=== PATIENT | female | born 1955 | race Asian ===

== ENCOUNTER 2018-07-16 11:29 | Emergency (ER) | payer OTHER ==
[~2018-07-16] VITALS: Ht 152.4 cm; Wt 54.9 kg
[2018-07-16 11:42] VITALS: Ht 152.4 cm; Wt 54.9 kg
[2018-07-16 12:07] LABS: microscopic required? NO
[2018-07-16 12:27] LABS: CALCIUM 9.3 mg/dL (8.5-10.1); CARBON DIOXIDE 27.3 mmol/L (21-32); CHLORIDE SERUM 96 mmol/L (98-107); CREATININE SERUM 1.1 mg/dL (0.6-1.0); GFR1 53 mL/min; GLUCOSE SERUM 385 mg/dL (74-106); POTASSIUM SERUM 3.8 mmol/L (3.5-5.1); SODIUM SERUM 134 mmol/L (136-145)
[2018-07-16 12:35] LABS: ALBUMIN 3.4 g/dL (3.4-5.0); ALKALINE PHOSPHATASE 109 U/L (46-116); ALT/SGPT 21 U/L (14-59); AST/SGOT 12 U/L (15-37); BILIRUBIN TOTAL 0.16 mg/dL (0.20-1.00); TOTAL PROTEIN, SERUM 8.6 g/dL (6.4-8.2)
[2018-07-16 12:40] LABS: CK-MB 1.2 ng/mL (0-3.6)
[2018-07-16 12:43] LABS: FREE T4 1.03 ng/dL (0.76-1.46); FREE THYROXINE INDEX 2.5 ug/dL (1.4-4.5)
[2018-07-16 12:57] LABS: ERYTHROCYTE SED RATE 53 mm/hr (0-30)
[2018-07-16 13:04] LABS: UA SPECIFIC GRAVITY <=1.005 (1.005-1.035); urine erythrocyte NEGATIVE (NEGATIVE)
[2018-07-16 14:26] LABS: BASOPHIL % 0.3 % (0-2); PLATELET COUNT 307 x10^3mcL (130-400)
[2018-07-16 16:00] VITALS: BP 135/70
[2018-07-16 16:20] LABS: AMPHETAMINE QUAL UR NONE DETECTED (See below)
[2018-07-17 09:22] LABS: T3 TOTAL 1.1 ng/mL
== END 2018-07-16 16:01 | disposition home or self-care (01) ==
LOC: ED 11:29
PROVIDERS: Specialist
DX: F41.9 Anxiety disorder, unspecified (principal); E11.9 Type 2 diabetes mellitus without complications; J44.9 Chronic obstructive pulmonary disease, unspecified; I10 Essential (primary) hypertension; I48.91 Unspecified atrial fibrillation; F31.9 Bipolar disorder, unspecified; K21.9 Gastro-esophageal reflux disease without esophagitis; K74.60 Unspecified cirrhosis of liver; F17.210 Nicotine dependence, cigarettes, uncomplicated; M19.90 Unspecified osteoarthritis, unspecified site; Z88.8 Allergy status to other drugs, medicaments and biological substances; Z85.3 Personal history of malignant neoplasm of breast; Z85.07 Personal history of malignant neoplasm of pancreas
CPT/HCPCS: 36600; 82962; 84439; 99406; J1815; J7030; Q0092